=== PATIENT | male | born 1965 | race Hispanic/Latino ===

== ENCOUNTER 2022-05-23 09:15 | Inpatient (IN) | payer OTHER ==
[~2022-05-23] VITALS: Ht 182.9 cm; Wt 90.7 kg
[2022-05-23] MEDS ORDERED: KETOROLAC 15MG/ML VIAL (15MG/ML) IV PRN (10:30)
[2022-05-23] MEDS ORDERED: MORPHINE 2 MG SYG IVP PRN (10:30)
[2022-05-23 10:33] LABS: BASOPHILS % (AUTO) 0.3 % (0.0-5.0); EOSINOPHILS % (AUTO) 0.7 % (0.0-8.0); HEMATOCRIT 33.5 % (42-54); LYMPHOCYTES % (AUTO) 8.9 % (21.0-51.0); MEAN CORPUSCULAR HEMOGLOBIN 23.4 pg (27.0-33.0); MEAN CORPUSCULAR HGB CONC 30.1 g/dL (32.0-36.0); MEAN CORPUSCULAR VOLUME 77.7 fL (79-99); MONOCYTES % (AUTO) 4.9 % (3.0-13.0); NEUTROPHILS % (AUTO) 84.8 % (40.0-77.0); PLATELET COUNT (AUTO) 266 K/uL (130-400); RED BLOOD CELL COUNT(AUTO) 4.31 MIL/uL (4.50-6.20); RED CELL DISTRIBUTION WIDTH 16.7 % (11.0-15.5); WHITE BLOOD COUNT (AUTO) 7.2 K/uL (4.8-10.8)
[2022-05-23 10:42] LABS: CARBON DIOXIDE 27 mmol/L (21-32); CHLORIDE 102 mmol/L (101-111); GLOMERULAR FILTR. RATE CALC 82 mL/min (>60); GLUCOSE,RANDOM 118 mg/dL (70-105); POTASSIUM 4.2 mmol/L (3.5-5.1); SODIUM SERUM 135 mmol/L (136-145); UREA NITROGEN, BLOOD 16 mg/dL (7-18)
[2022-05-23 10:45] LABS: HEMOGLOBIN A1C 5.5 % (4.0-6.0)
[2022-05-23] MEDS: METOPROLOL TARTRATE 25 MG TAB PO SCH ×2 (10:50→20:25)
[2022-05-23] MEDS: LACTATED RINGERS 1000ML 1,000 ML IV SCH ×2 (10:55→18:28)
[2022-05-23 11:03] LABS: ALANINE AMINOTRANSFERASE 122 U/L (12-78); ALCOHOL, BLOOD < 3 mg/dL (0-10); ASPARTATE AMINOTRANSFERASE 59 U/L (10-37); THYROID STIMULATING HORMONE 2.01 uIU/mL (0.36-3.74); TOTAL PROTEIN, SERUM 7.5 g/dL (6.0-8.3)
[2022-05-23 11:16] LABS: INR 0.93 (0.85-1.15); PROTHROMBIN TIME 10.1 SEC (9.6-11.6)
[2022-05-23 11:17] LABS: PARTIAL THROMBOPLASTIN TIME 26.3 SEC (26.3-35.5)
[2022-05-23] MEDS ORDERED: CHLORDIAZEPOXIDE HCL 25 MG CAP PO PRN (11:30)
[2022-05-23] MEDS ORDERED: PHARMACY COMMUNICATION MISC PRN (11:30)
[2022-05-23] MEDS ORDERED: LORAZEPAM 2 MG/ML 1 ML VIAL IVP PRN (11:30)
[2022-05-23 12:42] LABS: % IRON SATURATION 4.9 % (30-44)
[2022-05-23] MEDS: THIAMINE HCL 100 MG/ML 2ML VIAL IVP SCH (12:59)
[2022-05-23] MEDS: PANTOPRAZOLE 40 MG/VIAL IVP SCH ×2 (12:59→20:26)
[2022-05-23 14:09] LABS: HEMATOCRIT 32.9 % (42-54)
[2022-05-23 14:23] LABS: AMPHET/METH SCREEN,URINE NEGATIVE (NEGATIVE); BARBITURATE SCREEN, URINE NEGATIVE (NEGATIVE); BENZODIAZEPINES SCREEN,URINE NEGATIVE (NEGATIVE); CANNABINOID SCREEN,URINE NEGATIVE (NEGATIVE); COCAINE SCREEN,URINE NEGATIVE (NEGATIVE); OPIATE SCREEN,URINE NEGATIVE (NEGATIVE); PHENCYCLIDINE SCREEN,URINE NEGATIVE (NEGATIVE)
[2022-05-23 17:31] VITALS: BP 135/76
[2022-05-23 19:04] VITALS: BP 120/76
[2022-05-23 19:42] LABS: HEMATOCRIT 31.2 % (42-54)
[2022-05-23 23:27] VITALS: BP 124/70
[2022-05-24] MEDS: LACTATED RINGERS 1000ML 1,000 ML IV SCH ×3 (02:36→18:30)
[2022-05-24 03:16] VITALS: BP 125/90
[2022-05-24 03:24] LABS: BASOPHILS % (AUTO) 0.4 % (0.0-5.0); EOSINOPHILS % (AUTO) 2.7 % (0.0-8.0); HEMATOCRIT 31.1 % (42-54); LYMPHOCYTES % (AUTO) 20.8 % (21.0-51.0); MEAN CORPUSCULAR HEMOGLOBIN 23.4 pg (27.0-33.0); MEAN CORPUSCULAR HGB CONC 30.2 g/dL (32.0-36.0); MEAN CORPUSCULAR VOLUME 77.6 fL (79-99); MONOCYTES % (AUTO) 8.2 % (3.0-13.0); NEUTROPHILS % (AUTO) 67.5 % (40.0-77.0); PLATELET COUNT (AUTO) 243 K/uL (130-400); RED BLOOD CELL COUNT(AUTO) 4.01 MIL/uL (4.50-6.20); RED CELL DISTRIBUTION WIDTH 16.8 % (11.0-15.5); WHITE BLOOD COUNT (AUTO) 5.6 K/uL (4.8-10.8)
[2022-05-24 03:39] LABS: ALBUMIN 2.5 g/dL (3.5-5.0); MAGNESIUM 1.7 mg/dL (1.80-2.40); POTASSIUM 4.4 mmol/L (3.5-5.1); TOTAL PROTEIN, SERUM 6.5 g/dL (6.0-8.3)
[2022-05-24 04:34] LABS: HEPATITIS B SURFACE ANTIGEN Non-Reactive (Nonreactive)
[2022-05-24 04:35] LABS: HEPATITIS A IGM ANTIBODY Non-Reactive (Nonreactive); HEPATITIS B CORE IGM ANTIBODY Non-Reactive (Negative); HEPATITIS C ANTIBODY Non-Reactive (Nonreactive)
[2022-05-24] MEDS ORDERED: MAGNESIUM 2GM PREMIX 50ML 50 ML IV SCH (08:30)
[2022-05-24] MEDS ORDERED: EPOETIN ALFA-EPBX (NON-ESRD) 10,000 UNIT/ML VIAL SQ SCH (08:30)
[2022-05-24] MEDS ORDERED: IRON SUCROSE COMPLEX 500 MG in 0.9% NACL 250ML 250 ML IV SCH (08:30)
[2022-05-24 08:47] LABS: HEMATOCRIT 31.4 % (42-54)
[2022-05-24 08:55] VITALS: BP 126/78
[2022-05-24] MEDS ORDERED: FOLIC ACID 1 MG TABLET PO SCH (09:00)
[2022-05-24] MEDS ORDERED: THIAMINE HCL 100 MG/ML 2ML VIAL IM SCH (09:00)
[2022-05-24] MEDS: FOLIC ACID 5 MG/ML VIAL IV SCH (09:08)
[2022-05-24] MEDS: PANTOPRAZOLE 40 MG/VIAL IVP SCH ×2 (09:08→21:04)
[2022-05-24] MEDS: METOPROLOL SUCCINATE 25 MG TAB.SR.24H PO SCH ×2 (09:08→21:04)
[2022-05-24] MEDS: THIAMINE HCL 100 MG/ML 2ML VIAL IVP SCH (09:08)
[2022-05-24 12:35] VITALS: BP 127/80
[2022-05-24 20:42] VITALS: BP 135/72
[2022-05-25 00:17] VITALS: BP 113/85
[2022-05-25 03:19] LABS: BASOPHILS % (AUTO) 0.4 % (0.0-5.0); EOSINOPHILS % (AUTO) 4.5 % (0.0-8.0); HEMATOCRIT 30.4 % (42-54); MEAN CORPUSCULAR HEMOGLOBIN 23.6 pg (27.0-33.0); MEAN CORPUSCULAR HGB CONC 30.3 g/dL (32.0-36.0); MEAN CORPUSCULAR VOLUME 77.9 fL (79-99); MONOCYTES % (AUTO) 7.7 % (3.0-13.0); PLATELET COUNT (AUTO) 256 K/uL (130-400); RED CELL DISTRIBUTION WIDTH 17.1 % (11.0-15.5); WHITE BLOOD COUNT (AUTO) 5.1 K/uL (4.8-10.8)
[2022-05-25 04:29] LABS: ALBUMIN 2.6 g/dL (3.5-5.0); CREATININE 1.1 mg/dL (0.5-1.5); MAGNESIUM 1.8 mg/dL (1.80-2.40); TOTAL PROTEIN, SERUM 6.6 g/dL (6.0-8.3)
[2022-05-25 04:39] VITALS: BP 128/66
[2022-05-25 08:00] VITALS: BP 105/71
[2022-05-25] MEDS ORDERED: COMPOUND IV REFRIGERATED 1 EACH IVSOLN MISC PRN (08:30)
[2022-05-25] MEDS: THIAMINE HCL 100 MG/ML 2ML VIAL IVP SCH (10:28)
[2022-05-25] MEDS: METOPROLOL SUCCINATE 25 MG TAB.SR.24H PO SCH (10:28)
[2022-05-25] MEDS: PANTOPRAZOLE 40 MG/VIAL IVP SCH (10:28)
[2022-05-25] MEDS ORDERED: THIA100T78 PO (11:10)
[2022-05-25] MEDS ORDERED: CALC-131 PO (11:10)
[2022-05-25] MEDS ORDERED: METO25TA3 PO (11:10)
[2022-05-25 12:00] VITALS: BP 124/67
[2022-05-25] MEDS: FOLIC ACID 5 MG/ML VIAL IV SCH (12:40)
[2022-05-25 16:00] VITALS: BP 130/73
== END 2022-05-25 19:00 | disposition home or self-care (01) | DRG 444 ==
LOC: EDH 09:15 → DIRECT 09:29 → 2AH 12:53
PROVIDERS: ADMIT Internal Medicine; ATTEND Internal Medicine
DX: K80.00 Calculus of gallbladder with acute cholecystitis without obstruction (principal); K85.20 Alcohol induced acute pancreatitis without necrosis or infection; K92.1 Melena; I48.91 Unspecified atrial fibrillation; D50.9 Iron deficiency anemia, unspecified; F10.20 Alcohol dependence, uncomplicated; K82.8 Other specified diseases of gallbladder; I10 Essential (primary) hypertension
CPT/HCPCS: 36415; 74181; 78227; 80053; 80061; 80074; 80305; 82607; 82728; 82746; 82948; 83036; 83540; 83550; 83690; 83735; 84443; 84484; 85014; 85018; 85025; 85610; 85730; 86850; 86900; 86901; 93005; 93306; 93356; A9537; C9113; G0378; J1756; J1885; J3411; J3475; J3490; J7050; J7120